=== PATIENT | female | born 1945 | race Caucasian/White ===

== ENCOUNTER 2021-06-01 17:40 | Inpatient (IN) | payer OTHER ==
[~2021-06-01] VITALS: Ht 167.6 cm; Wt 63.5 kg
[2021-06-01 17:47] VITALS: BP 177/94
[2021-06-01] MEDS ORDERED: NOHOMEMEDICATIONS (17:50)
[2021-06-01 19:11] LABS: ABSOLUTE EOSINOPHILS 0.1 thou/uL (0.0-0.7); ABSOLUTE LYMPHOCYTES 0.7 thou/uL (0.8-5.3); ABSOLUTE MONOCYTES 0.6 thou/uL (0.0-1.2); ABSOLUTE NEUTROPHILS 6.2 thou/uL (1.6-8.1); BASOPHILS 0.7 %; EOSINOPHILS 0.7 %; HEMATOCRIT 41.8 % (37.0-47.0); HEMOGLOBIN 13.6 gm/dL (12.0-15.0); LYMPHOCYTES 9.5 %; MCH 30.8 pg (26.0-34.0); MCHC 32.6 g/dL (28.0-37.0); MCV 94.4 fL (80.0-100.0); MONOCYTES 7.3 %; MPV 6.9 fl. (7.2-11.1); NUCLEATED RBCS 0 /100WBC; PLATELET COUNT* 172 thou/uL (150-400); POLYS 81.8 %; RBC 4.43 mil/uL (4.20-5.00); RDW-CV 14.7 % (10.5-14.5); WBC 7.6 thou/uL (4.0-11.0)
[2021-06-01 19:21] LABS: ALBUMIN 3.2 g/dL (3.4-5.0); POTASSIUM 4.1 mmol/L (3.5-5.1); TOTAL BILIRUBIN 0.7 mg/dL (<0.1-1.0); TOTAL PROTEIN 7.3 g/dL (6.4-8.2)
[2021-06-01 19:30] LABS: CALCIUM 8.2 mg/dL (8.5-10.1); CREATININE 0.7 mg/dL (0.6-1.3)
[2021-06-01 22:00] VITALS: BP 175/74
[2021-06-01 22:11] VITALS: BP 175/74
[2021-06-02 00:10] VITALS: BP 158/75
[2021-06-02 08:00] VITALS: BP 163/70
[2021-06-02 12:45] VITALS: BP 109/55
--- NOTE | 2021-06-02 14:35 | EKG ---
[place] [address] ELECTROCARDIOGRAM REPORT Name: MYLES NATHAN Room: [address] ADM [place] .R.#: [id number] Admission: 06/01/21 Attend Phys: Savannah Moran, Discharge: Date of : 47 Date of Service: 06/01/21 1905 Report #: [id number] THIS REPORT FOR: //name// [facility] ED Test Date: 2021-06-01 Test Time: 19:05:27 Pat Name: MYLES NATHAN Department: Room: [facility] Gender: F Legal Internship: [place] : 1945 Requested By: Ashli Wilson Order Number: [id number] MD: Nam Jason Measurements Intervals [place] Rate: 86 P: 0 [place]: 56 QRS: -20 QRSD: 104 T: 162 QT: 366 QTc: 438 Interpretive Statements Sinus rhythm Short [place] interval Inferior infarct, old Artifact in lead(s) I,III,aVL and baseline wander in lead(s) V3 No previous ECG available for comparison Electronically Signed On 06-02-2021 14:35:02 INSTITUTIONAL CUSTODIAN by Nam Jason [email or web address] <ELECTRONICALLY SIGNED> By: Nam Jason MD, FACC 06/02/21 1435 04 04 Nam Jason MD, FACC /EPI
[2021-06-02 16:29] VITALS: BP 137/68
[2021-06-02 20:10] VITALS: BP 151/67
[2021-06-03 00:02] VITALS: BP 105/52
[2021-06-03 03:54] VITALS: BP 127/63
[2021-06-03 05:46] LABS: HEMATOCRIT 30.4 % (37.0-47.0); MCH 30.6 pg (26.0-34.0); MCHC 32.7 g/dL (28.0-37.0); MCV 93.5 fL (80.0-100.0); MPV 6.6 fl. (7.2-11.1); RBC 3.25 mil/uL (4.20-5.00); RDW-CV 14.3 % (10.5-14.5); WBC 4.8 thou/uL (4.0-11.0)
[2021-06-03 06:10] LABS: ALBUMIN 2.2 g/dL (3.4-5.0); CALCIUM 7.4 mg/dL (8.5-10.1); CREATININE 0.7 mg/dL (0.6-1.3); MAGNESIUM 1.9 mg/dL (1.8-2.4); POTASSIUM 3.9 mmol/L (3.5-5.1); TOTAL BILIRUBIN 0.6 mg/dL (<0.1-1.0); TOTAL PROTEIN 5.4 g/dL (6.4-8.2)
[2021-06-03 08:00] VITALS: BP 140/59
[2021-06-03 11:39] VITALS: BP 123/55
[2021-06-03 16:22] VITALS: BP 96/44
[2021-06-03 21:09] VITALS: BP 102/49
[2021-06-04 04:18] LABS: HEMATOCRIT 30.4 % (37.0-47.0); HEMOGLOBIN 9.9 gm/dL (12.0-15.0); MCH 30.4 pg (26.0-34.0); MCHC 32.4 g/dL (28.0-37.0); MCV 93.7 fL (80.0-100.0); MPV 6.7 fl. (7.2-11.1); RBC 3.25 mil/uL (4.20-5.00); RDW-CV 14.6 % (10.5-14.5); WBC 5.4 thou/uL (4.0-11.0)
[2021-06-04 04:41] LABS: ALBUMIN 2.1 g/dL (3.4-5.0); CALCIUM 7.7 mg/dL (8.5-10.1); CREATININE 0.7 mg/dL (0.6-1.3); MAGNESIUM 2.1 mg/dL (1.8-2.4); POTASSIUM 4.2 mmol/L (3.5-5.1); TOTAL BILIRUBIN 0.5 mg/dL (<0.1-1.0); TOTAL PROTEIN 5.8 g/dL (6.4-8.2)
[2021-06-04 08:00] VITALS: BP 118/53
[2021-06-04 16:00] VITALS: BP 113/42
--- NOTE | 2021-06-04 17:04 | 2DMMODE ---
[place] [address] 2 D/M-MODE ECHOCARDIOGRAM Name: MYLES NATHAN Room: [address] [place] ..#: [id number] Admission: 06/01/21 Attend Phys: Savannah Moran, Discharge: Date of : 47 Date of Service: 06/04/21 1703 Report #: [id number] THIS REPORT FOR: cc: FAM - No family physician/PCP FAM - No family physician/PCP Nam Jason MD [facility] ~ APPROVED REPORT Study performed: 06/04/2021 15:59:13 EXAM: Comprehensive 2D, Doppler, and color-flow Echocardiogram Patient Location: In-Patient Room #: [facility] BSA: 2.13 HR: 76 bpm Other Information Study Quality: Fair Technically limited study due to inability to position patient. Indications Murmur 2D Dimensions IVSd: 9.52 (7-11mm) LVOT Diam: 19.58 (18-24mm) LVDd: 37.03 mm PWd: 9.62 (7-11mm) Ascending Ao: 27.53 (22-36mm) LVDs: 20.50 (25-40mm) Aortic Root: 33.71 mm Volumes Left Atrial Volume (Systole) LA ESV Index: 15.60 mL/m2 Aortic Valve AoV Peak Joel.: 1.91 m/s AO Peak Gr.: 14.54 mmHg LVOT Max P.07 mmHg AO Mean Gr.: 7.79 mmHg LVOT Mean P.47 mmHg LVOT Max V: 1.33 m/s AO V2 VTI: 32.84 cm LVOT Mean V: 0.86 m/s PER (VTI): 2.41 cm2 LVOT V1 VTI: 26.30 [place] [address] 2 D/M-MODE ECHOCARDIOGRAM Name: MYLES NATHAN Room: [address]#: [id number] Admission: 06/01/21 Attend Phys: Savannah Moran, Discharge: Date of : 47 Date of Service: 06/04/21 1703 Report #: [id number] Mitral Valve E/A Ratio: 0.77 MV Decel. Time: 341.87 ms MV E Max Joel.: 0.69 m/s MV PHT: 99.14 ms MVA (PHT): 2.22 cm2 TDI E/Lateral E': 6.90 E/Medial E': 7.67 Medial E' Joel.: 0.09 m/s Lateral E' Joel.: 0.10 m/s Pulmonary Valve PV Peak Joel.: 1.15 m/s PV Peak Gr.: 5.28 mmHg Tricuspid Valve RAP Estimate: 5.00 mmHg TR Peak Gr.: 50.95 mmHg RVSP: 55.95 mmHg PA Pressure: 55.95 mmHg Left Ventricle The left ventricle is normal size. There is normal LV segmental wall motion. There is normal left ventricular wall thickness. Left ventricular systolic function is normal. LVEF is 65-70%. Grade I - abnormal relaxation pattern. Right Ventricle The right ventricle is normal size. The right ventricular systolic function is normal. Atria Left atrium is mildly dilated. The right atrium size is normal. Aortic Valve Mild aortic valve sclerosis. No aortic regurgitation is present. There is no aortic valvular stenosis. Mitral Valve Mild mitral annular calcification. There is no mitral valve regurgitation noted. No evidence of mitral valve stenosis. Tricuspid Valve The tricuspid valve is normal in structure. Moderate tricuspid regurgitation. The RVSP is 65 [place] [address] 2 D/M-MODE ECHOCARDIOGRAM Name: MYLES NATHAN Room: [address] [place] [facility]#: [id number] Admission: 06/01/21 Attend Phys: Savannah Moran, Discharge: Date of : 47 Date of Service: 06/04/21 1703 Report #: [id number] Pulmonic Valve The pulmonary valve is normal in structure. There is no pulmonic valvular regurgitation. Great Vessels The aortic root is normal in size. IVC is not well visualized. Pericardium There is no pericardial effusion. <Conclusion> The left ventricle is normal size. There is normal left ventricular wall thickness. Left ventricular systolic function is normal. LVEF is 65-70%. Grade I - abnormal relaxation pattern. Left atrium is mildly dilated. Mild aortic valve sclerosis. Mild mitral annular calcification. Moderate tricuspid regurgitation. The RVSP is 65 mmHg. <ELECTRONICALLY SIGNED> By: Nam Jason MD, FACC 06/04/211702 02 02 Nam Jason MD, FACC /INF
[2021-06-04 20:00] VITALS: BP 115/55
[2021-06-05 04:20] LABS: HEMATOCRIT 28.4 % (37.0-47.0); HEMOGLOBIN 9.4 gm/dL (12.0-15.0); MCH 30.8 pg (26.0-34.0); MCHC 33.1 g/dL (28.0-37.0); MCV 93.1 fL (80.0-100.0); MPV 6.9 fl. (7.2-11.1); RBC 3.05 mil/uL (4.20-5.00); RDW-CV 14.7 % (10.5-14.5)
[2021-06-05 04:24] LABS: CALCIUM 8.3 mg/dL (8.5-10.1); CREATININE 0.8 mg/dL (0.6-1.3); MAGNESIUM 2.4 mg/dL (1.8-2.4); POTASSIUM 4.8 mmol/L (3.5-5.1)
[2021-06-05 08:00] VITALS: BP 120/59
[2021-06-05 16:06] VITALS: BP 118/55
[2021-06-05 20:45] VITALS: BP 121/50
[2021-06-06] VITALS: BP 137/66
[2021-06-06 04:03] VITALS: BP 150/63
[2021-06-06 05:37] LABS: HEMATOCRIT 27.9 % (37.0-47.0); HEMOGLOBIN 9.2 gm/dL (12.0-15.0); MCH 30.5 pg (26.0-34.0); MCV 92.4 fL (80.0-100.0); RBC 3.02 mil/uL (4.20-5.00); RDW-CV 14.4 % (10.5-14.5); WBC 4.3 thou/uL (4.0-11.0)
[2021-06-06 05:54] LABS: CREATININE 0.6 mg/dL (0.6-1.3); POTASSIUM 4.1 mmol/L (3.5-5.1)
[2021-06-06 08:00] VITALS: BP 150/74
[2021-06-06 18:02] VITALS: BP 161/73
[2021-06-06 22:00] VITALS: BP 136/63
[2021-06-07 00:35] VITALS: BP 152/63
[2021-06-07 04:05] VITALS: BP 138/68
[2021-06-07 16:00] VITALS: BP 151/67
[2021-06-07 22:00] VITALS: BP 129/71
[2021-06-08 06:17] LABS: HEMATOCRIT 28.6 % (37.0-47.0); HEMOGLOBIN 9.5 gm/dL (12.0-15.0); MCH 30.6 pg (26.0-34.0); MCHC 33.2 g/dL (28.0-37.0); MCV 92.1 fL (80.0-100.0); MPV 6.7 fl. (7.2-11.1); RBC 3.1 mil/uL (4.20-5.00); RDW-CV 14.2 % (10.5-14.5); WBC 4.3 thou/uL (4.0-11.0)
[2021-06-08 06:34] LABS: CALCIUM 7.9 mg/dL (8.5-10.1); CREATININE 0.6 mg/dL (0.6-1.3); MAGNESIUM 2.2 mg/dL (1.8-2.4); POTASSIUM 4.2 mmol/L (3.5-5.1); TOTAL BILIRUBIN 0.9 mg/dL (<0.1-1.0); TOTAL PROTEIN 5.9 g/dL (6.4-8.2)
[2021-06-08 08:00] VITALS: BP 135/72
[2021-06-08 09:51] VITALS: BP 135/72
[2021-06-08] MEDS ORDERED: TRAMADOL 50 MG50 MG PO (13:19)
[2021-06-08] MEDS ORDERED: HYDROCODON-ACE1 EAC7 PO (13:19)
[2021-06-08] MEDS ORDERED: GABAPENTIN 100100 MG PO (13:19)
[2021-06-08] MEDS ORDERED: LISINOPRIL5 MG PO (13:19)
== END 2021-06-08 14:15 | DRG 481 ==
LOC: M.ERS 17:40 → M.TBA-ER 19:40 → M.3W 19:40
PROVIDERS: Nurse Practitioner Family; ADMIT Internal Medicine; ATTEND Internal Medicine
PROC: 0QS704Z Reposition Left Upper Femur with Internal Fixation Device, Open Approach (ICD-10-PCS; principal; 2021-06-02)
DX: S72.142A Displaced intertrochanteric fracture of left femur, initial encounter for closed fracture (principal); E44.1 Mild protein-calorie malnutrition; R71.0 Precipitous drop in hematocrit; Z20.822 Contact with and (suspected) exposure to COVID-19; R01.1 Cardiac murmur, unspecified; S91.001A Unspecified open wound, right ankle, initial encounter; Z79.899 Other long term (current) drug therapy; Y93.89 Activity, other specified; W18.39XA Other fall on same level, initial encounter; Y92.098 Other place in other non-institutional residence as the place of occurrence of the external cause; Y99.8 Other external cause status